=== PATIENT | female | born 1990 | race Hispanic/Latino ===

== ENCOUNTER 2018-10-31 07:15 | Emergency (ER) | payer MEDICAID, OTHER ==
[2018-10-31 07:34] VITALS: BP 112/46; PULSE 94; RESP 16; TEMP 97.6; O2SAT 100; BMI 23.4
[2018-10-31 08:20] LABS: URINE BILIRUBIN NEGATIVE (NEGATIVE); URINE BLOOD NEGATIVE (NEGATIVE); URINE GLUCOSE (UA) NEGATIVE (NEGATIVE); URINE LEUKOCYTE ESTERASE NEGATIVE Leu/uL (NEGATIVE); URINE PROTEIN NEGATIVE mg/dL (<30 mg/dL); URINE UROBILINOGEN 0.2 E.U./dL (<1 E.U./dL)
[2018-10-31 08:22] LABS: URINE APPEARANCE CLEAR (CLEAR); URINE COLOR YELLOW (YELLOW)
--- NOTE | 2018-10-31 09:01 | ED PDOC ---
Arrival/HPI - General Chief Complaint: Abdominal Pain Time Seen by Provider: 10/31/18 07:38 Historian: Patient - History of Present Illness Narrative History of Present Illness (Text): 10/31/18 07:38 Deandra Lee is a 28 year old female, with history of , who presents to the emergency department for sharp / throbbing abdominal pain since earlier this morning. Patient informs waking up at 7 AM with pain. Patient states pain is worsened when ambulating, sitting, and laying down. Patient's last bowel movement was last night. Last menstrual period was 10/23/18. Patient denies any fevers, chills, headache, dizziness, chest pain, shortness of breath, dyspnea on exertion, cough, diaphoresis, nausea, vomiting, diarrhea, back pain, neck pain, dysuria, hematuria, hematochezia, vaginal bleeding, or any other complaint. Time/Duration: 1-3 hours Symptom Onset: Sudden Symptom Course: Unchanged Quality: Stabbing (described as sharp), Throbbing Activities at Onset: Light Context: Home Past Medical History - Provider Review Nursing Documentation Reviewed: Yes - Infectious Disease Hx of Infectious Diseases: None - Reproductive Menopause: No - Psychiatric Hx Substance Use: No - Surgical History Hx Section: Yes (x3) Hx Tonsillectomy: Yes - Anesthesia Hx Anesthesia: Yes Hx Anesthesia Reactions: No Hx Malignant Hyperthermia: No Family/Social History Family/Social History: Unknown Family HX Smoking Status: Current Some Days Smoker Hx Alcohol Use: No Hx Substance Use: No Allergies/Home Meds Allergies/Adverse Reactions: Allergies Penicillins Allergy (Verified 10/31/18 07:34) RASH Home Medications: Home Meds Medication Instructions Recorded Confirmed No Known Home Med 10/31/18 10/31/18 Review of Systems - Physician Review All systems were reviewed & negative as marked: Yes - Review of Systems Constitutional: absent: Fevers, Other (chills) Respiratory: absent: SOB, Cough Cardiovascular: absent: Chest Pain, GASTON Gastrointestinal: Abdominal Pain. absent: Diarrhea, Nausea, Vomiting, Hematochezia Genitourinary Female: absent: Dysuria, Hematuria, Vaginal Bleeding Musculoskeletal: absent: Back Pain, Neck Pain Neurological: absent: Headache, Dizziness Endocrine: absent: Diaphoresis Physical Exam Vital Signs Reviewed: Yes Vital Signs Temp Pulse Resp BP Pulse Ox 10/31/18 07:33 97.6 F 94 H 16 112/46 L 100 Temperature: Afebrile Blood Pressure: Normal Pulse: Regular Respiratory Rate: Normal Appearance: Positive for: Well-Appearing, Non-Toxic, Comfortable Pain Distress: None Mental Status: Positive for: Alert and Oriented X 3 - Systems Exam Head: Present: Atraumatic, Normocephalic Pupils: Present: PERRL Extroacular Muscles: Present: EOMI Conjunctiva: Present: Normal Mouth: Present: Moist Mucous Membranes Neck: Present: Normal Range of Motion Respiratory/Chest: Present: Clear to Auscultation, Good Air Exchange. No: Respiratory Distress, Accessory Muscle Use Cardiovascular: Present: Regular Rate and Rhythm, Normal S1, S2. No: Murmurs Abdomen: Present: Tenderness (left lower quadrant tender to palpation), Normal Bowel Sounds. No: Distention, Peritoneal Signs, Rebound, Guarding Back: Present: Normal Inspection. No: CVA Tenderness Upper Extremity: Present: Normal Inspection, NORMAL PULSES, Neurovascularly Intact. No: Cyanosis, Edema Lower Extremity: Present: Normal Inspection, NORMAL PULSES, Neurovascularly Intact. No: Edema Neurological: Present: GCS=15, CN II-XII Intact, Speech Normal, Motor Func Grossly Intact, Normal Sensory Function Skin: Present: Warm, Dry, Normal Color. No: Rashes Psychiatric: Present: Alert, Oriented x 3, Normal Insight, Normal Concentration Medical Decision Making ED Course and Treatment: 10/31/18 07:38 Impression: Patient is a 28 year old female, who presents to the emergency department complaining of abdominal pain since earlier this morning. Patient informs waking up with pain. Patient denies F/C/N/V/D and any abnormal bleeding. On exam, left lower quadrant tender to palpation, otherwise unremarkable. Plan: -- POC Urine Test -- Urinalysis -- Reassess and disposition Prior Visits: Notes and results from previous visits were reviewed. Progress Notes: 10/31/18 08:56 Patient is resting comfortably, abdomen remains soft. Patient feels comfortable going home. Patient will be discharged home. - Lab Interpretations Lab Results: Urine Color Yellow (YELLOW) 10/31/18 08:07 Urine Appearance Clear (CLEAR) 10/31/18 08:07 Urine pH 6.0 (4.7-8.0) 10/31/18 08:07 Ur Specific Shannon 1.025 (1.005-1.035) 10/31/18 08:07 Urine Protein Negative mg/dL (<30 mg/dL) 10/31/18 08:07 Urine Glucose (UA) Negative mg/dL (NEGATIVE) 10/31/18 08:07 Urine Ketones Negative mg/dL (NEGATIVE) 10/31/18 08:07 Urine Blood Negative (NEGATIVE) 10/31/18 08:07 Urine Nitrate Negative (NEGATIVE) 10/31/18 08:07 Urine Bilirubin Negative (NEGATIVE) 10/31/18 08:07 Urine Urobilinogen 0.2 E.U./dL (<1 E.U./dL) 10/31/18 08:07 Ur Leukocyte Esterase Negative Ashish/uL (NEGATIVE) 10/31/18 08:07 - Scribe Statement The provider has reviewed the documentation as recorded by the Scribe Eligio Aden All medical record entries made by the Scribe were at my direction and personally dictated by me. I have reviewed the chart and agree that the record accurately reflects my personal performance of the history, physical exam, medical decision making, and the department course for this patient. I have also personally directed, reviewed, and agree with the discharge instructions and disposition. Disposition/Present on Arrival - Present on Arrival Any Indicators Present on Arrival: No History of DVT/PE: No History of Uncontrolled Diabetes: No Urinary Catheter: No History of Decub. Ulcer: No History Surgical Site Infection Following: None - Disposition Have Diagnosis and Disposition been Completed?: Yes Diagnosis: Abdominal pain Disposition: HOME/ ROUTINE Disposition Time: 09:04 Patient Plan: Discharge Condition: GOOD Discharge Instructions (ExitCare): Acute Abdomen (Belly Pain), Adult (DC) Additional Instructions: DEANDRA LEE, thank you for letting us take care of you today. Your provider was Maral Russell MD and you were treated for stomach pain. The emergency medical care you received today was directed at your acute symptoms. If you were prescribed any medication, please fill it and take as directed. It may take several days for your symptoms to resolve. Return to the Emergency Department if your symptoms worsen, do not improve, or if you have any other problems. Please contact your doctor for a follow up appointment in 1-2 days. Bring any paperwork you were given at discharge with you along with any medications you are taking to your follow up visit. Our treatment cannot replace ongoing medical care by a primary care provider outside of the emergency department. Thank you for allowing the [facility] team to be part of your care today. Referrals: Mariaelena Lai V, [Primary Care Provider] - Follow up with primary Forms: [employer] (Tai[place]ese)
== END 2018-10-31 09:11 | disposition home or self-care (01) ==
LOC: ED 07:15
DX: R10.9 Unspecified abdominal pain (principal); Z98.890 Other specified postprocedural states